=== PATIENT | female | born 1970 | race Caucasian/White ===

== ENCOUNTER 2017-02-27 17:32 | Emergency (ER) | payer OTHER ==
[2017-02-27] MEDS: ONDANSETRON (ODT) 4 MG TAB ODT (18:08)
== END 2017-02-27 18:12 | disposition home or self-care (01) ==
LOC: E/R 17:32 → FTE 18:12
DX: R11.10 Vomiting, unspecified (principal); R19.7 Diarrhea, unspecified
CPT/HCPCS: 99283

== ENCOUNTER 2017-04-03 15:23 | Emergency (ER) | payer OTHER ==
[2017-04-03] MEDS: IBUPROFEN 600 MG TAB PO (15:57)
[2017-04-03] MEDS: DEXAMETHASONE 10 MG/ML 1 ML INJ PO (15:57)
[2017-04-03] MEDS: IPRATROPIUM (NEB) 0.5 MG/2.5 ML AMP HHN (15:59)
[2017-04-03] MEDS: ALBUTEROL 0.083% (NEB) 2.5 MG/3 ML AMP HHN (15:59)
== END 2017-04-03 17:26 | disposition home or self-care (01) ==
LOC: FTE 15:23
DX: J20.9 Acute bronchitis, unspecified (principal); R07.9 Chest pain, unspecified
CPT/HCPCS: 71045; 87400; 94664; 99285

== ENCOUNTER 2017-06-08 07:14 | Emergency (ER) | payer OTHER ==
[2017-06-08] MEDS: ONDANSETRON 4 MG INJ IV (07:32)
[2017-06-08] MEDS: morphine 2 MG INJ IV (07:33)
[2017-06-08] MEDS: SOD CHLORIDE 0.9% 1,000 ML IV (07:33)
[2017-06-08 07:51] LABS: ADD MAN DIFF? NO
[2017-06-08 07:53] LABS: WHITE BLOOD COUNT 9.8 10^3/ul (4.8-10.8)
[2017-06-08 07:53] LABS: BASOPHILS % 0.3 % (0.0-2.0); EOSINOPHILS # 0.1 10^3/ul (0.0-0.5); EOSINOPHILS % 0.8 % (0.0-7.0); HEMATOCRIT 38.6 % (37.0-47.0); HEMOGLOBIN 13.2 g/dl (12.0-16.0); LYMPHOCYTES # 1.5 10^3/ul (0.8-2.9); LYMPHOCYTES % 15.1 % (15.0-51.0); MEAN CORPUSCULAR HEMOGLOBIN 30.4 pg (29.0-33.0); MEAN CORPUSCULAR HGB CONC 34.2 g/dl (32.0-37.0); MEAN CORPUSCULAR VOLUME 88.9 fl (82.0-101.0); MEAN PLATELET VOLUME 10.5 fl (7.4-10.4); MONOCYTE # 1.1 10^3/ul (0.3-0.9); NEUTROPHIL # 7.1 10^3/ul (1.6-7.5); NEUTROPHILS % 72.5 % (39.0-77.0); PLATELET COUNT 279 10^3/UL (140-415); RED BLOOD COUNT 4.34 10^6/ul (4.20-5.40); RED CELL DISTRIBUTION WIDTH 12.5 % (11.5-14.5)
[2017-06-08 08:01] LABS: ADD UMIC YES; UR ASCORBIC ACID NEGATIVE (NEGATIVE); UR BILIRUBIN (Dip) NEGATIVE (NEGATIVE); UR BLOOD (Dip) 2+ mg/dL (NEGATIVE); UR CLARITY SLIGHTLY CLOUDY (CLEAR); UR COLOR YELLOW (YELLOW); UR GLUCOSE (Dip) NEGATIVE (NEGATIVE); UR KETONES (Dip) NEGATIVE (NEGATIVE); UR LEUKOCYTE ESTERASE (Dip) TRACE Leu/ul (NEGATIVE); UR NITRITE (Dip) NEGATIVE (NEGATIVE); UR RBC 6 /HPF (0-5); UR SPECIFIC GRAVITY (Dip) 1.014 (1.003-1.030); UR SQUAMOUS EPITHELIAL CELL FEW /HPF (FEW); UR TOTAL PROTEIN (Dip) NEGATIVE (NEGATIVE); UR UROBILINOGEN (Dip) NEGATIVE (NEGATIVE); UR WBC 2 /HPF (0-5)
[2017-06-08 08:20] LABS: ALANINE AMINOTRANSFERASE 20 IU/L (13-69); ALBUMIN 4.3 g/dl (3.3-4.9); ALBUMIN/GLOBULIN RATIO 1.19; ALKALINE PHOSPHATASE 140 IU/L (42-121); ANION GAP 17 (8-16); ASPARTATE AMINO TRANSFERASE 18 IU/L (15-46); BILIRUBIN,INDIRECT 0.2 mg/dl (0-1.1); BILIRUBIN,TOTAL 0.2 mg/dl (0.2-1.3); BLOOD UREA NITROGEN 14 mg/dl (7-20); CARBON DIOXIDE 23 mmol/L (21-31); CHLORIDE 105 mmol/L (97-110); CREATININE 0.61 mg/dl (0.44-1.00); GLUCOSE 120 mg/dl (70-220); LIPASE 88 U/L (23-300); POTASSIUM 4.3 mmol/L (3.5-5.1); SODIUM 141 mmol/L (135-144); TOTAL PROTEIN 7.9 g/dl (6.1-8.1)
[2017-06-08] MEDS: KETOROLAC 30 MG INJ IV (08:42)
== END 2017-06-08 09:16 | disposition home or self-care (01) ==
LOC: FTE 07:14
DX: R10.84 Generalized abdominal pain (principal); R11.2 Nausea with vomiting, unspecified
CPT/HCPCS: 36415; 74176; 80053; 81001; 81025; 83690; 85025; 96374; 96375; 99285-25

== ENCOUNTER 2018-09-14 18:45 | Emergency (ER) | payer BC, OTHER ==
[2018-09-14] MEDS: KETOROLAC 30 MG INJ IM (20:05)
== END 2018-09-14 22:34 | disposition home or self-care (01) ==
LOC: FTE 22:34
DX: N64.4 Mastodynia (principal)
CPT/HCPCS: 76642; 81025; 96372; 99285-25